=== PATIENT | male | born 1985 | race Hispanic/Latino ===

== ENCOUNTER 2022-09-18 20:57 | Emergency (ER) | payer BC ==
[~2022-09-18] VITALS: Ht 55.9 cm; Wt 71.2 kg
[2022-09-18 20:59] VITALS: BP 129/85
[2022-09-18] MEDS ORDERED: LORAZEPAM 1 MG TABLET ONE (21:29)
[2022-09-18] MEDS ORDERED: LORAZEPAM 1 MG TABLET PO ONE (21:30)
[2022-09-18] MEDS ORDERED: LORA-192 PO (21:34)
== END 2022-09-18 22:26 | disposition home or self-care (01) ==
LOC: EDH 20:57
DX: F41.9 Anxiety disorder, unspecified (principal); F41.0 Panic disorder [episodic paroxysmal anxiety]
CPT/HCPCS: 93005

== ENCOUNTER → 2024-05-15 | Emergency (ER) | payer BC ==
[~2024-05-15] VITALS: Ht 180.3 cm; Wt 77.1 kg
[~2024-05-15] MED LIST: LORA-192 PO
[2024-05-15 23:58] LABS: BASOPHILS # (AUTO) 0.04 K/uL (0.00-0.20); BASOPHILS % (AUTO) 0.5 % (0.0-5.0); EOSINOPHILS # (AUTO) 0.15 K/uL (0.00-0.70); EOSINOPHILS % (AUTO) 1.8 % (0.0-8.0); HEMATOCRIT 43.9 % (42-54); IMMATURE GRANULOCYTE ABSOLUTE 0.04 K/uL (0-1); LYMPHOCYTES # (AUTO) 2.3 K/uL (1.0-4.8); LYMPHOCYTES % (AUTO) 27.6 % (21.0-51.0); MEAN CORPUSCULAR HGB CONC 36.7 g/dL (32.0-36.0); MEAN CORPUSCULAR VOLUME 84.4 fL (79-99); MONOCYTES # (AUTO) 0.5 K/uL (0.1-1.0); MONOCYTES % (AUTO) 6.3 % (3.0-13.0); NEUTROPHILS # (AUTO) 5.4 K/uL (1.8-7.7); NEUTROPHILS % (AUTO) 63.3 % (40.0-77.0); PLATELET COUNT (AUTO) 279 K/uL (130-400); RED CELL DISTRIBUTION WIDTH 11.9 % (11.0-15.5); WHITE BLOOD COUNT (AUTO) 8.4 K/uL (4.8-10.8)
[2024-05-16 00:09] LABS: CREATININE 1.1 mg/dL (0.5-1.3)
[2024-05-16 00:13] LABS: SARS-CoV-2, RNA, NAAT NEGATIVE SARS CoV-2 (NEGATIVE)
[2024-05-16 00:14] LABS: RAPID GROUP A STREP negative (NEGATIVE)
[2024-05-16 00:16] LABS: ALBUMIN 4.4 g/dL (3.5-5.0); BILIRUBIN,TOTAL 0.7 mg/dL (0.2-1.0)
[2024-05-16 00:23] LABS: INFLUENZA TYPE A Negative For Type A (NEGATIVE); INFLUENZA TYPE B Negative For Type B (NEGATIVE)
[2024-05-16 00:39] LABS: APPEARANCE,URINE CLEAR (CLEAR); BILIRUBIN,URINE NEGATIVE (NEGATIVE); COLOR,URINE COLORLESS (YELLOW); GLUCOSE, URINE (UA) NEGATIVE (NEGATIVE); KETONES,URINE NEGATIVE (NEGATIVE); LEUKOCYTE ESTERASE ,URINE NEGATIVE Leu/uL (NEGATIVE); NITRATE,URINE NEGATIVE (NEGATIVE); OCCULT BLOOD,URINE NEGATIVE (NEGATIVE); PH,URINE 7.5 (5.0-8.0); PROTEIN,URINE NEGATIVE (NEGATIVE); UROBILINOGEN,URINE 0.2 mg/dL (0.2-1.0)
[2024-05-16 00:41] LABS: ADD UA MICROSCOPIC NO
[2024-05-16] MEDS: 0.9% NACL 500ML IV.SOLN 500 ML IV SCH (02:48)
[2024-05-16 04:27] VITALS: BP 126/72; PULSE 58; RESP 18; O2SAT 98
== END ==
LOC: EDH 23:29
DX: F41.9 Anxiety disorder, unspecified (principal); M79.18 Myalgia, other site; R50.9 Fever, unspecified; Z20.822 Contact with and (suspected) exposure to COVID-19; Z98.890 Other specified postprocedural states
CPT/HCPCS: 36415; 71045; 80053; 81003; 85025; 87635; 87804; 87880; J7040